=== PATIENT | female | born 1950 | race Caucasian/White ===

== ENCOUNTER 2020-03-26 10:11 | Emergency (ER) | payer MEDICARE ==
[2020-03-26] MEDS ORDERED: SODIUM CHLORIDE 0.9% 1,000 ML IV STA (10:14)
--- NOTE | 2020-03-26 10:16 | ED Physician Documentation ---
PD HPI [facility]AL [facility]URO - Stated complaint Stated Complaint: CODE STROKE - History obtained from History obtained from: Patient, Family ( reported through EMS), EMS - History of Present Illness Timing - onset: Today (last seen normal at 7:30 am.) Timing - duration: Hours (2) Timing - details: Abrupt onset, Still present Weakness: Face, Arm, Leg, Left Numbness: Face, Arm, Leg, Left Associated symptoms: Headache. No: Nausea / vomiting, Head injury, Chest pain, Neck pain Contributing factors: negative: Anticoagulated, Atrial fibrillation Baseline status: positive: A&OX3, ambulatory, indep Similar symptoms before: Has not had sx before Recently seen: Not recently seen Review of Systems Constitutional: denies: Fever, Chills Nose: denies: Rhinorrhea / runny nose, Congestion Throat: denies: Sore throat Cardiac: denies: Chest pain / pressure Respiratory: denies: Cough GI: reports: Nausea. denies: Abdominal Pain, Vomiting, Diarrhea Musculoskeletal: denies: Neck pain, Back pain Neurologic: reports: Focal weakness (today). denies: Generalized weakness, Altered mental status Psychiatric: denies: Anxiety, Insomnia Endocrine: denies: Weight loss Immunocompromised: denies: Immunocompromised PD PAST MEDICAL HISTORY - Past Medical History Cardiovascular: Hypertension (on HCTZ only) Respiratory: None Neuro: None Endocrine/Autoimmune: None - Present Medications Home Medications: Ambulatory Orders Medication Instructions Recorded Confirmed Hydrochlorothiazide 03/26/20 - Allergies Allergies/Adverse Reactions: Allergies Allergy/AdvReac Type Severity Reaction Status Date / Time Sulfa (Sulfonamide Allergy Unknown Verified 03/26/20 10:45 Antibiotics) - Living Situation Living Situation: reports: With spouse/s.o. Living Arrangement: reports: At home - Social History Does the pt smoke?: No Does the pt drink ETOH?: No Does the pt have substance abuse?: No - Family History Family history: reports: CVA - POLST Patient has POLST: No POLST Status: Full Code PD ED PE NORMAL - Vitals Vital signs reviewed: Yes - General General: Alert and oriented X 3, Well developed/nourished - HEENT HEENT: Moist mucous membranes, Pharynx benign - Neck Neck: Supple, no meningeal sign, No adenopathy - Cardiac Cardiac: RRR, No murmur - Respiratory Respiratory: Clear bilaterally - Abdomen Abdomen: Soft, Non tender - Extremities Extremities: No edema, No calf tenderness / cord - Neuro Neuro: Alert and oriented X 3 Eye Opening: Spontaneous Motor: Obeys Commands Verbal: Oriented GCS Score: 15 NIHSS - Level of Consciousness Level of consciousness: (0) Alert, Keenly responsive LOC Questions: (0) Answers both Q's correct LOC Commands: (0) Performs both correctly - Gaze Best Gaze: (0) Normal - Visual Visual: (0) No loss - Facial Palsy Facial Palsy: (2) Partial paralysis - Motor Arms (both separate) Motor Arm (right): (0) No drift Motor Arm (left): (3) No effort against gravity - Motor Legs (both separate) Motor Leg (right): (0) No drift Motor Leg (left): (3) No effort against gravity - Limb Ataxia Limb Ataxia: (1) Present in 1 limb - Sensory Sensory: (1) Nvzg-mv-[id number] loss - Best Language Best Language: (0) No aphasia - Dysarthria Dysarthria: (0) Normal - Extinction and Inattention (formally neg Extinction and inattention: (0) No abnormality - Total Score/Results Total Score/Result: 10 Results - Vitals Vitals: Vital Signs - 24 hr 03/26/20 03/26/20 03/26/20 10:15 11:15 11:30 Temperature 36.8 C Heart Rate 74 66 89 Respiratory 13 11 L 19 Rate Blood Pressure 184/112 H 177/97 H 177/91 H O2 Saturation 100 97 100 03/26/20 03/26/20 03/26/20 12:00 12:30 13:00 Temperature Heart Rate 62 63 61 Respiratory 20 17 18 Rate Blood Pressure 162/94 H 181/99 H 152/95 H O2 Saturation 98 98 99 03/26/20 03/26/20 13:30 14:00 Temperature 36.6 C 36.8 C Heart Rate 65 70 Respiratory 14 18 Rate Blood Pressure 166/81 H 158/90 H O2 Saturation 99 98 Oxygen O2 Source Room air - Labs Labs: Laboratory Tests 03/26/20 03/26/20 03/26/20 10:35 10:40 10:40 WBC 5.5 RBC 4.88 Hgb 15.0 Hct 45.2 MCV 92.6 MCH 30.7 MCHC 33.2 RDW 13.1 Plt Count 170 MPV 10.3 Neut # (Auto) 2.9 Lymph # (Auto) 1.8 [place] # (Auto) 0.4 Eos # (Auto) 0.2 Baso # (Auto) 0.1 Absolute Nucleated RBC 0.00 Nucleated RBC % 0.0 ESR 4 Sodium Potassium Chloride Carbon Dioxide Anion Gap BUN Creatinine Estimated GFR (MDRD) Glucose POC Whole Bld Glucose 84 Calcium Magnesium Total Bilirubin AST ALT Alkaline Phosphatase Total Protein Albumin Globulin Albumin/Globulin Ratio TSH Ethyl Alcohol SARS-CoV-2 (PCR) 03/26/20 03/26/20 03/26/20 10:40 10:40 12:52 WBC RBC Hgb Hct MCV MCH MCHC RDW Plt Count MPV Neut # (Auto) Lymph # (Auto) [place] # (Auto) Eos # (Auto) Baso # (Auto) Absolute Nucleated RBC Nucleated RBC % ESR Sodium 134 L Potassium 3.5 Chloride 103 Carbon Dioxide 24 Anion Gap 7.0 BUN 12 Creatinine 0.6 Estimated GFR (MDRD) 99 Glucose 95 POC Whole Bld Glucose Calcium 8.5 Magnesium 2.0 Total Bilirubin 2.0 H AST 21 ALT 11 Alkaline Phosphatase 59 Total Protein 6.8 Albumin 3.7 Globulin 3.1 Albumin/Globulin Ratio 1.2 TSH 3.04 Ethyl Alcohol < 5.0 SARS-CoV-2 (PCR) NOT DETECTED - Rads (name of study) head CT Radiology: Prelim report reviewed, Discussed with rads (Large bleed on the right cerebral hemisphere centered at the basal ganglia, 2x4 cm without midline shift.), See rad report angio head and neck Radiology: Prelim report reviewed (no aneurysms.), See rad report PD MEDICAL DECISION MAKING - ED course Complexity details: reviewed results (acute ICH right side. ), re-evaluated patient (gave some Enalapril, and also Morphine for headache, and got BP in target range of 140-160 systolic. ), considered differential (left weakness, and will get CT and CTA. able to talk and no airway issue. ), d/w patient, d/w family (), d/w professional services consultant (talked with [place] transfer physician. He spoke with Neuro/Neurosurg and the patient was accepted to [facility] Neuro ICU, Dr. Elias. The transfer engineer stated that [facility] wanted the patient there sooner and asked that we arrange transportation. I therefore opted for air transport given severity.) Departure - Departure Disposition: 02 Transfer Acute Care Hosp Clinical Impression: Acute intracerebral hemorrhage, Acute left-sided weakness Condition: Stable Record reviewed to determine appropriate education?: Yes Discharge Date/Time: 03/26/20 14:05
[2020-03-26] MEDS ORDERED: ENALAPRILAT 1.25 MG/ML VIAL IVP STA ×2 (10:41→11:44)
[2020-03-26] MEDS ORDERED: TRANEXAMIC ACID 1,000 MG in SODIUM CHLORIDE 0.9% 100ML 100 ML IV STA (10:42)
--- NOTE | 2020-03-26 10:43 | CT Report ---
PROCEDURE: Head W/O Stroke Protocol INDICATIONS: left sided weakness this morning TECHNIQUE: Noncontrast 4.5 mm thick angled axial sections acquired from the foramen magnum to the vertex, with c oronal reformats. For radiation dose reduction, the following was used: automated exposure control, adjustment of mA and/or kV according to patient size. COMPARISON: FINDINGS: Image quality: Excellent. CSF spaces: Basal cisterns are patent. No extra-axial fluid collections. Ventricles are normal in size and shape. Brain: There is focal acute hemorrhage seen within the right deep white matter/basal ganglia that me asures 4.2 x 2.1 x 3.1 cm. Associated mild mass effect is seen, yet without significant midline shift . No significant brain abnormality is seen. Tello-white matter interface appears intact. No midline shift. Tello-white matter interface is normal. Skull and face: Calvarium and visualized facial bones are intact, without suspicious lesions. Sinuses: Visualized sinuses and mastoids are clear. A right-sided celestine bullosa is incidentally no katie. IMPRESSION: Large right basal ganglia/deep white matter acute infarction seen that measures up to 4. 2 cm. No significant associated midline shift is seen. Note: Clinical finding of acute intracranial hemorrhage discussed by telephone with Dr. Leal at 9: 40 AM on the time on 03/26/2020. This study fulfills neurological imaging criteria for inclusion or exclusion of acute stroke therapie s based on available published neurological imaging guidelines. Reviewed by: Arturo Delgado MD on 03/26/2020 9:42 AM [facility] Approved by: Arturo Delgado MD on 03/26/2020 9:42 AM [facility] Station ID: [id number]
[2020-03-26 10:47] LABS: BASOPHILS # (AUTO) 0.1 10^3/uL (0.0-0.1); BASOPHILS % (AUTO) 0.9 %; EOSINOPHILS # (AUTO) 0.2 10^3/uL (0.0-0.7); LYMPHOCYTES # (AUTO) 1.8 10^3/uL (1.5-3.5); LYMPHOCYTES % (AUTO) 33.2 %; MEAN CORPUSCULAR HEMOGLOBIN 30.7 pg (27.0-31.0); MEAN CORPUSCULAR HGB CONC 33.2 g/dL (32.0-36.0); MEAN CORPUSCULAR VOLUME 92.6 fL (81.0-99.0); MEAN PLATELET VOLUME 10.3 fL (7.9-10.8); MONOCYTES # (AUTO) 0.4 10^3/uL (0.0-1.0); MONOCYTES % (AUTO) 7.9 %; NEUTROPHILS # (AUTO) 2.9 10^3/uL (1.5-6.6); NEUTROPHILS % (AUTO) 53.8 %; PLT - PLATELET COUNT 170 10^3/uL (130-450); RED BLOOD COUNT 4.88 10^6/uL (4.20-5.40); RED CELL DISTRIBUTION WIDTH 13.1 % (12.0-15.0); WHITE BLOOD COUNT 5.5 x10^3/uL (4.8-10.8)
--- NOTE | 2020-03-26 10:47 | CT Report ---
PROCEDURE: ANGIO NECK W INDICATIONS: L sided facial droop, L neck pain CONTRAST: IV CONTRAST: Optiray 320 ml: 80 PO CONTRAST: *NO PO CONTRAST TECHNIQUE: After the administration of intravenous contrast, 1.5 mm axial sections acquired from the aortic arch to the [place]. Coronal 3-D maximum intensity projection (MIP) and/or volume rendering ref ormats were then performed. For radiation dose reduction, the following was used: automated exposur e control, adjustment of mA and/or kV according to patient size. COMPARISON: Correlation is made with the accompanying head CT and brain angiogram studies, 0. FINDINGS: Image quality: Excellent. Carotid system: The great vessels demonstrate a conventional anatomy as they arise from the aortic a rch. The origins of the common carotid arteries appear patent. The common carotid arteries demonstr ate normal calibers and courses. The bifurcation regions appear normal bilaterally, with note made o f age-appropriate atherosclerotic irregularity and calcification, yet without a hemodynamically signi ficant stenosis. The internal carotid arteries demonstrate normal caliber and course. Posterior circulation: The origins of the vertebral arteries appear patent. The more superior porti ons of the vertebral arteries demonstrate normal course and caliber. They join to form a normal appe aring basilar artery. Soft tissues: There is visualization of the known right cerebral hemisphere intraparenchymal hemorrh age. Visualized neck soft tissues demonstrate no suspicious abnormalities. The thyroid gland is norm al in size. Bones: No suspicious bony lesions. Visualized cervical spine appears normally aligned. Prominent [place] degenerative changes are seen, with reversal of the normal cervical lordosis, with the apex at the C4 level. There is moderate disc space narrowing at C3-C4, with moderate to severe disc space narrow ing at C4-C5, C5-C6, and C6-C7. IMPRESSION: Visualization of the known right intraparenchymal hemorrhage. No hemodynamically significant stenosis can be seen within the arteries of the neck. Prominent cervical spine degenerative changes are seen. The estimate of stenosis included in the report of the imaging study was calculated using the NASCET method Reviewed by: Arturo Delgado MD on 03/26/2020 9:45 AM [facility] Approved by: Arturo Delgado MD on 03/26/2020 9:45 AM [facility] Station ID: [id number]
--- NOTE | 2020-03-26 10:50 | CT Report ---
PROCEDURE: ANGIO HEAD W/WO INDICATIONS: L sided facial droop CONTRAST: IV CONTRAST: Optiray 320 ml: 80 PO CONTRAST: *NO PO CONTRAST TECHNIQUE: Precontrast 4.5 mm thick angled axial sections acquired from the foramen magnum to the vertex. Afte r the administration of intravenous contrast, 1 mm thick sections acquired through the [place] is. Postcontrast 4.5 mm thick sections then re-acquired from the foramen magnum to the vertex. 3-di mensional jbnastn-tzggtjazb-ilklamegbp (MIP) and/or volume rendering reformats were acquired of the c entral intracranial vasculature. For radiation dose reduction, the following was used: automated ex posure control, adjustment of mA and/or kV according to patient size. COMPARISON: Correlation is made with the accompanying noncontrast head CT as well as the neck CT ang iogram studies dated 03/26/2020. FINDINGS: Image quality: Excellent. Anterior circulation: Intracranial internal carotid arteries are normal in size and flow. The flow within the paired anterior cerebral arteries is normal and symmetric. The flow within the middle cer ebral arteries is normal and symmetric. The anterior communicating artery is not well seen. No aneu rysms are seen. Posterior circulation: Visualized portions of the vertebral arteries demonstrate normal caliber, and join to form a normal appearing basilar artery. Bilateral type origins of the posterior cereb ral arteries can be seen. Flow within the posterior cerebral arteries is normal and symmetric. No an eurysms are seen. CSF spaces: Ventricles are normal in size and shape. Basal cisterns are patent. No extra-axial flu id collections. Brain: There is visualization of the known right-sided intraparenchymal hemorrhage that measures up t o 4.2 cm. No midline shift. Tello-white matter interface appears intact. Skull and face: Calvarium and facial bones appear intact, without suspicious lesions. Sinuses: Visualized sinuses and mastoids are clear. IMPRESSION: Visualization of the known right cerebral hemisphere intraparenchymal hemorrhage. No acute abnormality can be seen within the intracranial arteries. No aneurysms are seen. Incidental note is made of bilateral type origins of the posterior cerebral arteries. Reviewed by: Arturo Delgado MD on 03/26/2020 9:48 AM [facility] Approved by: Arturo Delgado MD on 03/26/2020 9:48 AM [facility] Station ID: [id number]
[2020-03-26] MEDS ORDERED: IOVERSOL 320 100 ML VIAL IVP ONE ×2 (11:02→11:32)
[2020-03-26 11:03] LABS: ALBUMIN 3.7 g/dL (3.2-5.5); ALBUMIN/GLOBULIN RATIO 1.2 (1.0-2.2); ALKALINE PHOSPHATASE 59 IU/L (42-121); ALT ALANINE AMINOTRANSFERASE 11 IU/L (10-60); AST ASPARTATE AMINOTRANSFERASE 21 IU/L (10-42); BUN - BLOOD UREA NITROGEN 12 mg/dL (6-20); CALCIUM 8.5 mg/dL (8.5-10.3); CARBON DIOXIDE - CO2 24 mmol/L (21-32); CHLORIDE 103 mmol/L (101-111); CREATININE 0.6 mg/dL (0.4-1.0); GLUCOSE 95 mg/dL (70-100); SODIUM 134 mmol/L (135-145); TOTAL PROTEIN 6.8 g/dL (6.7-8.2)
[2020-03-26] MEDS ORDERED: MORPHINE 10 MG/ML VIAL IVP STA (11:19)
[2020-03-26] MEDS ORDERED: ACETAMINOPHEN 1,000 MG/100 ML 100 ML IV ONE (13:43)
[2020-03-26 14:04] VITALS: BP 158/90
== END 2020-03-26 14:05 | disposition short-term general hospital (02) ==
LOC: ED 10:11
DX: I61.9 Nontraumatic intracerebral hemorrhage, unspecified (principal); R29.810 Facial weakness; G81.94 Hemiplegia, unspecified affecting left nondominant side; R29.710 NIHSS score 10; I10 Essential (primary) hypertension; M47.812 Spondylosis without myelopathy or radiculopathy, cervical region; Z20.828 Contact with and (suspected) exposure to other viral communicable diseases
CPT/HCPCS: 36415; 70450; 70496; 70498; 80053; 83735; 84443; 85025; 85651; 93005; 96374; 96375; 99284; 99285; Q9967; U0004; 80320